=== PATIENT | female | born 2000 | race Caucasian/White ===

== ENCOUNTER → 2021-07-04 | Outpatient (CLI) | payer MEDICARE, MEDICAID | LOC: COL.RAD 12:35 | DX: N20.0 Calculus of kidney (principal); N31.9 Neuromuscular dysfunction of bladder, unspecified ==

== ENCOUNTER 2021-09-29 15:51 | Emergency (ER) | payer MEDICARE, MEDICAID ==
[~2021-09-29] VITALS: Ht 152.4 cm; Wt 54.5 kg
[2021-09-29 16:06] VITALS: TEMP 98.1
[2021-09-29 18:13] LABS: BASO % 0.3 % (0.0-2.0); EOS % 0.6 % (0.0-4.0); GRAN # 3.6 K/mm3 (1.4-6.5); GRAN % 57.4 % (42.2-75.2); HEMATOCRIT 42.7 % (35.0-45.0); HEMOGLOBIN 14.5 g/dl (12.0-15.0); LYMPH # 2.3 K/mm3 (1.2-3.4); LYMPH % 36.1 % (20.0-51.0); MEAN CELL VOLUME 99 fl (80.0-95.0); MEAN CORPUSCULAR HEMOGLOBIN 34 pg (26-32); MEAN CORPUSCULAR HGB CONC 34 g/dl (33.0-37.0); MONO # 0.3 K/mm3 (0.1-0.6); MONO % 5.1 % (1.7-9.3); PLATELET COUNT 379 K/mm3 (130-400); RED BLOOD COUNT 4.32 M/mm3 (4.10-5.30); REDCELL DISTRIBUTION WIDTH-CV 11.2 % (11.5-14.5)
[2021-09-29 18:21] LABS: COLLECTION METHOD CLEAN CATCH
[2021-09-29 18:30] LABS: AMORPHOUS CRYSTAL Present (NOT PRESENT); MUCOUS Present (NOT PRESENT); URINE BACTERIA Many /hpf (NONE SEEN)
[2021-09-29 18:31] LABS: ALBUMIN 4.5 gm/dL (3.5-5.0); BILIRUBIN,TOTAL 0.5 mg/dL (0.2-1.2); CALCIUM 10.2 mg/dL (8.4-10.2); CREATININE, serum 0.63 mg/dL (0.57-1.11); POTASSIUM 4.1 mmol/L (3.5-4.5); TOTAL PROTEIN 7.8 gm/dL (6.2-8.1)
[2021-09-29 18:33] LABS: URINE APPEARANCE Cloudy (CLEAR/HAZY); URINE COLOR Yellow (YELLOW)
[2021-09-29 18:34] LABS: URINE BLOOD Negative (NEGATIVE); URINE GLUCOSE Negative (NEGATIVE); URINE KETONE Negative (NEGATIVE); URINE NITRATE Positive (NEGATIVE); URINE PROTEIN(semi-quant) Negative (NEGATIVE)
[2021-09-29] MEDS ORDERED: CIPRO 500MG TA500 MG PO (18:42)
[2021-09-29 18:50] VITALS: BP 116/73; PULSE 80
== END 2021-09-29 18:58 | disposition home or self-care (01) ==
LOC: COL.ER 15:51
PROVIDERS: Emergency Medicine
DX: N12 Tubulo-interstitial nephritis, not specified as acute or chronic (principal); N21.0 Calculus in bladder; Z91.040 Latex allergy status; Z32.02 Encounter for pregnancy test, result negative
CPT/HCPCS: J1885

== ENCOUNTER → 2022-11-19 | Outpatient (REF) | payer MEDICARE, MEDICAID ==
[~2022-11-19] MED LIST: ATARAX 25MG25 MG/TAB PO; BENADRYL25 M2 PO; CIPRO 500MG TA500 MG PO; DEPO-PROVER150 MG/M1 IM; DITROPAN XL15 MG PO; HCTZ 25MG TAB25 MG PO; LIORESAL20 MG PO; MIRALAX PA17 GM/Dose PO; MYRBETR25MG PO; PHENERGAN12.5 MG/SU RC; PRIL40 PO; TORADOL 10MG TA10 MG PO; ZANAFLEX2 MG PO; ZOLOFT 100MG100 MG PO
[2022-11-19 09:37] LABS: COLLECTION METHOD CATHETER
[2022-11-19 10:25] LABS: URINE APPEARANCE Cloudy (CLEAR/HAZY); URINE COLOR Yellow (YELLOW)
[2022-11-19 10:26] LABS: AMORPHOUS CRYSTAL Present (NOT PRESENT); SQUAMOUS EPITHELIAL 0-2 /hpf (0-10); URINE BACTERIA Moderate /hpf (NONE SEEN); URINE BLOOD Negative (NEGATIVE); URINE CALCIUM OXALATE CRYSTAL Present (NOT PRESENT); URINE GLUCOSE Negative (NEGATIVE); URINE KETONE Negative (NEGATIVE); URINE NITRATE Negative (NEGATIVE); URINE PROTEIN(semi-quant) Negative (NEGATIVE); URINE RBC 0-2 /hpf (0-2); URINE UROBILINOGEN 0.2 E.U/dL (0.2-1.0); URINE WBC 0-2 /hpf (0-2)
== END ==
LOC: ZCOL.LAB 11-18 08:33
DX: N39.0 Urinary tract infection, site not specified (principal)

== ENCOUNTER 2022-12-12 18:37 | Emergency (ER) | payer MEDICARE, MEDICAID ==
[~2022-12-12] VITALS: Ht 152.4 cm; Wt 59.1 kg
[2022-12-12 18:46] VITALS: TEMP 98.1
[2022-12-12 21:00] LABS: BASO % 0.3 % (0.0-2.0); EOS % 0.4 % (0.0-4.0); GRAN # 4.9 K/mm3 (1.4-6.5); GRAN % 70.9 % (42.2-75.2); HEMOGLOBIN 15.4 g/dl (12.5-16.0); LYMPH # 1.5 K/mm3 (1.2-3.4); LYMPH % 22.3 % (20.0-51.0); MEAN CELL VOLUME 98 fl (80.0-100.0); MEAN CORPUSCULAR HEMOGLOBIN 34 pg (27-31); MEAN CORPUSCULAR HGB CONC 35 g/dl (33.0-37.0); MONO # 0.4 K/mm3 (0.1-0.6); MONO % 5.8 % (1.7-9.3); PLATELET COUNT 403 K/mm3 (130-400); RED BLOOD COUNT 4.49 M/mm3 (4.10-5.30); REDCELL DISTRIBUTION WIDTH-CV 12.1 % (11.5-14.5)
[2022-12-12 21:20] LABS: ALBUMIN 4.1 gm/dL (3.5-5.0); BILIRUBIN,TOTAL 0.6 mg/dL (0.2-1.2); CALCIUM 9.5 mg/dL (8.4-10.2); CREATININE, serum 0.57 mg/dL (0.57-1.11); POTASSIUM 4.2 mmol/L (3.5-4.5); TOTAL PROTEIN 7.4 gm/dL (6.2-8.1)
[2022-12-12 21:33] LABS: COLLECTION METHOD CATHETER
[2022-12-12 21:43] LABS: URINE APPEARANCE Cloudy (CLEAR/HAZY); URINE BLOOD TRACE-INTACT (NEGATIVE); URINE COLOR Yellow (YELLOW); URINE GLUCOSE Negative (NEGATIVE); URINE KETONE 1+ (NEGATIVE); URINE NITRATE Negative (NEGATIVE); URINE PROTEIN(semi-quant) Negative (NEGATIVE)
[2022-12-12 21:56] LABS: AMORPHOUS CRYSTAL Present (NOT PRESENT); SQUAMOUS EPITHELIAL 0-2 /hpf (0-10)
[2022-12-12 21:57] LABS: URINE BACTERIA Many /hpf (NONE SEEN)
[2022-12-12 23:07] VITALS: BP 154/70; PULSE 76
== END 2022-12-12 23:07 | disposition home or self-care (01) ==
LOC: COL.ER 18:37
PROVIDERS: Physician Assistant
DX: U07.1 COVID-19 (principal); R11.2 Nausea with vomiting, unspecified; R10.32 Left lower quadrant pain; R10.31 Right lower quadrant pain; R51.9 Headache, unspecified; R53.83 Other fatigue; M79.10 Myalgia, unspecified site; R63.8 Other symptoms and signs concerning food and fluid intake; Z91.040 Latex allergy status
CPT/HCPCS: J2550; J7030

== ENCOUNTER 2023-06-08 07:52 | Emergency (ER) | payer MEDICARE ==
[~2023-06-08] VITALS: Wt 59.1 kg
[2023-06-08 08:00] VITALS: BP 122/85; TEMP 98.3
[2023-06-08] MEDS ORDERED: NORCO 325 MG-51 TAB PO (09:12)
[2023-06-08 09:25] VITALS: PULSE 76
== END 2023-06-08 09:25 | disposition home or self-care (01) ==
LOC: COL.ER 07:52
DX: S63.501A Unspecified sprain of right wrist, initial encounter (principal); Z91.040 Latex allergy status; X58.XXXA Exposure to other specified factors, initial encounter